=== PATIENT | female | born 1930 | race Caucasian/White ===

== ENCOUNTER 2016-06-05 15:20 | Emergency (ER) | payer OTHER, BC ==
[2016-06-05 15:25] VITALS: BP 127/57; PULSE 61; BMI 21.1
[2016-06-05] MEDS ORDERED: KETOROLAC TROMETHAMINE 60 MG/2 ML VIAL IVPUSH ONE (16:18)
--- NOTE | 2016-06-05 16:24 | PDOC ---
History of Present Illness <Handy John - Last Filed: 06/05/16 22:46> - General History Source: Patient, Family Exam Limitations: No Limitations - History of Present Illness Initial Comments: 06/05/16 16:21 Patient came to emergency department minutes on advice of Dr. Cartagena home they had called to discuss acute onset of pain. Patient states had episode of right flank pain that was spontaneously resolved within 2 hours approximately 3 weeks ago. Was not associated with any chills, fever, nausea vomiting, or any dysuria. Had a recurrence of that same type of pain in the right flank that was also spontaneously resolved within 2-3 hours. Patient assumed it was a musculoskeletal problem as it was not associated with any urinary problems or any other physical complaints. However last night had a recurrence of this pain but is been intermittent but recurrent and pain has escalated. States had history of kidney stone that was similar to the same type of pain 2006, that she passed spontaneously without intervention. Has had no recurrence and states that episode was noted to be left sided kidney stone. Denies any recent trauma, or exercise changes. Denies any fevers, URI symptoms, cough or shortness of breath. Denies any re-or constipation, no bowel changes. Family reports the patient suffers from osteoporosis but has never documented any spinal pathology or fractures 06/05/16 16:21 Occurred: reports: this morning Severity: reports: mild Pain Location: reports: back, chest Method of Injury: Yes: unknown Modifying Factors: improves with: None Loss of Consciousness: no loss of consciousness Associated Symptoms (Fall): denies symptoms <Klaudia Fernández - Last Filed: 06/06/16 12:50> - General Chief Complaint: Pain, Acute Stated Complaint: KIDNEY COMPLICATIONS (PCP SENT) Time Seen by Provider: 06/05/16 15:58 Past History <Handy John - Last Filed: 06/05/16 22:46> - Travel Traveled outside of the country in the last 30 days: No Close contact w/someone who was outside of country & ill: No - Past Medical History Anemia: No Asthma: No 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) Cardiac Disorders: Yes (AFIB) CVA: No COPD: No CHF: No Dementia: No Diabetes: Yes GI Disorders: No Disorders: No HTN: Yes Hypercholesterolemia: Yes Kidney Stones: Yes Liver Disease: No Seizures: No Thyroid Disease: No - Surgical History Abdominal Surgery: No Appendectomy: Yes Cardiac Surgery: No Cholecystectomy: No Lung Surgery: No Neurologic Surgery: No Orthopedic Surgery: Yes (ORIF JAZMIN FEMUR - TITANIUM RODS 20YRS AGO) - Psycho/Social/Smoking Cessation Hx Anxiety: No Suicidal Ideation: No Smoking Status: No Smoking History: Former smoker Have you smoked in the past 12 months: No Number of Cigarettes Smoked Daily: 0 Information on smoking cessation initiated: No Hx Alcohol Use: No Drug/Substance Use Hx: No Substance Use Type: None Hx Substance Use Treatment: No <Klaudia Fernández - Last Filed: 06/06/16 12:50> - Past Medical History Allergies/Adverse Reactions: Allergies Allergy/AdvReac Type Severity Reaction Status Date / Time ampicillin Allergy Verified 06/05/16 15:25 morphine Allergy Verified 06/05/16 15:25 Home Medications: Ambulatory Orders Atorvastatin Ca [Lipitor] 10 mg PO DAILY 08/20/12 Apixaban [Eliquis] 2.5 mg PO DAILY 12/14/15 Diltiazem Cd [Cardizem Cd -] 180 mg PO DAILY #30 cap.cd.24h 12/17/15 Sotalol HCl [Betapace -] 40 mg PO DAILY tablet 12/17/15 Ca/D3/Mag Ox/Zinc/Box Annealer/Kris/Bor [Calcium 600+D3 Plus Caplet] 1 each PO DAILY Cephalexin Monohydrate [Keflex -] 500 mg PO Q8H #21 capsule 06/05/16 Metformin HCl 500 mg PO DAILY 06/05/16 Tamsulosin HCl [Flomax] 0.4 mg PO DAILY #14 capsule 06/05/16 Tramadol HCl 50 mg PO Q8H PRN #12 tablet MDD 3 tabs 06/05/16 Trauma Specific PMHX - Complaint Specific PMHX Back Injury: No Neck Injury: No <Klaudia Fernández - Last Filed: 06/06/16 12:50> Review of Systems - Review of Systems Able to Perform ROS?: Yes Is the patient limited Korean proficient: Yes Constitutional: Yes: Symptoms Reported, See HPI, Malaise. No: Chills, Fever HEENTM: Yes: See HPI. No: Symptoms Reported Respiratory: Yes: Symptoms reported, See HPI. No: Cough, Shortness of Breath, Wheezing Musculoskeletal: Yes: Symptoms Reported Integumentary: No: Symptoms Reported All Other Systems: Reviewed and Negative <Klaudia Fernández - Last Filed: 06/06/16 12:50> *Physical Exam - Vital Signs Last Vital Signs Temp Pulse Resp BP Pulse Ox 61 18 127/57 97 06/05/16 15:21 06/05/16 15:21 06/05/16 15:21 06/05/16 15:21 <Handy John - Last Filed: 06/05/16 22:46> - Vital Signs Last Vital Signs Temp Pulse Resp BP Pulse Ox 61 18 127/57 97 06/05/16 15:21 06/05/16 15:21 06/05/16 15:21 06/05/16 15:21 - Physical Exam Comments: 06/05/16 16:25 General Appearance: Yes: Nourished, Appropriately Dressed, Apparent Distress, Mild Distress, Moderate Distress. No: Disheveled HEENT: positive: JAS, Normal ENT Inspection, TMs Normal, Pharynx Normal. negative: Rhinorrhea, Sinus Tenderness Neck: positive: Supple. negative: Tender, Lymphadenopathy (R), Lymphadenopathy (L) Respiratory/Chest: positive: Chest Tender, Lungs Clear, Normal Breath Sounds. negative: Respiratory Distress, Rales, Wheezing Cardiovascular: positive: Regular Rhythm, Regular Rate Gastrointestinal/Abdominal: positive: Normal Bowel Sounds, Flat (soft / but tnedderness to suprapubic and Rmid-Upper quadrants ), Soft, Guarding, Tenderness. negative: Tender, Organomegaly, Rebound Musculoskeletal: positive: Normal Inspection, Vertebral Tenderness (patient has exquisite reproduced tenderness along the lower thoracic spine and upper lumbar spine without crepitus or step-offs, no obvious deformity bruising or swelling noted. But pain this is also reproduced along bony prominence of posterior lower right ribs 11/30/11 without crepitus or step-offs) Extremity: positive: Normal Inspection, Normal Range of Motion. negative: Tender, Swelling, Calf Tenderness, Erythema Integumentary: positive: Dry, Warm, Pale Neurologic: positive: bread distributor II-XII NML intact, Fully Oriented, Alert, Normal Mood/ Affect, Normal Response, Motor Strength 5/5 <Pradeep,Klaudia - Last Filed: 06/06/16 12:50> ED Treatment Course - LABORATORY CBC & Chemistry Diagram: 06/05/16 17:04 06/05/16 16:15 - ADDITIONAL ORDERS Additional order review: Laboratory Results 06/05/16 06/05/16 19:10 16:15 Sodium 140 Potassium 4.4 Chloride 106 Carbon Dioxide 23 Anion Gap 11 BUN 35 H D Creatinine 1.4 H D Creat Clearance w eGFR 35.49 Random Glucose 154 H Calcium 9.7 Total Bilirubin 0.5 AST 20 D ALT 21 Alkaline Phosphatase 88 D Total Protein 7.3 Albumin 3.6 Urine Color Yellow Urine Appearance Clear Urine pH 5.0 Ur Specific [place] 1.024 Urine Protein 2+ H Urine Glucose (UA) 1+ H Urine Ketones Negative Urine Blood 1+ H Urine Nitrite Positive Urine Bilirubin Negative Urine Urobilinogen Negative Ur Leukocyte Esterase 2+ H Urine RBC 6 Urine WBC 16 Ur Epithelial Cells Rare Urine Bacteria Many Hyaline Casts 1 Urine Mucus Few 06/05/16 17:04 RBC 4.90 MCV 91.0 MCHC 33.2 RDW 15.1 D MPV 9.2 Neutrophils % 68.7 Lymphocytes % 16.6 Monocytes % 12.2 H Eosinophils % 1.4 Basophils % 1.1 - RADIOLOGY Radiology Studies Ordered: Category Date Time Status ABDOMEN & PELVIS CT W/O CONTR [CT] Stat CT Scan 06/05/16 20:16 Completed - Medications Given in the ED: ED Medications Discontinued Medications Generic Name Dose Route Start Last Admin Trade Name Freq PRN Reason Stop Dose Admin Ceftriaxone Sodium 1 gm/ 50 mls @ 100 mls/hr 06/05/16 20:32 06/05/16 20:55 Dextrose IVPB 06/05/16 21:01 100 mls/hr ONCE ONE Administration Sodium Chloride 500 mls @ 500 mls/hr 06/05/16 20:32 06/05/16 20:54 Normal Saline - IV 06/05/16 21:31 500 mls/hr ASDIR STA Administration Ketorolac Tromethamine 30 mg 06/05/16 16:18 06/05/16 17:11 Toradol Injection - IVPUSH 06/05/16 16:19 30 mg ONCE ONE Administration <Handy John D - Last Filed: 06/05/16 22:46> - LABORATORY CBC & Chemistry Diagram: 06/05/16 17:04 06/05/16 16:15 <ForrestonKlaudia - Last Filed: 06/06/16 12:50> Progress Note - Progress Note Progress Note: Back pain/flank pain. Will obtain x-rays to rule out compression fracture any pathologic fractures, basic labs and urinalysis to to evaluate for blood and possible renal stone, <Klaudia Fernández - Last Filed: 06/06/16 12:50> Medical Decision Making - Medical Decision Making 06/05/2016 at 1900 case turned over to haley John NP for remainder of evaluation and disposition. Family members updated to plan, and currently waiting for a spiral CT to evaluate renal status. Pain was well controlled with Toradol <Pradeep,Klaudia - Last Filed: 06/06/16 12:50> *DC/Admit/Observation/Transfer - Discharge Dispostion Admit: No <Handy John - Last Filed: 06/05/16 22:46> <Klaudia Fernández - Last Filed: 06/06/16 12:50> Diagnosis at time of Disposition: Renal colic UTI (urinary tract infection) Qualifiers: Urinary tract infection type: urethritis Qualified Code(s): N34.2 - Other urethritis - Discharge Dispostion Disposition: HOME Condition at time of disposition: Stable - Prescriptions Prescriptions: Tamsulosin HCl [Flomax] 0.4 mg PO DAILY #14 capsule Cephalexin Monohydrate [Keflex -] 500 mg PO Q8H #21 capsule Tramadol HCl 50 mg PO Q8H PRN #12 tablet MDD 3 tabs PRN Reason: Severe Pain - Referrals Referrals: Ja Cartagena MD [Primary Care Provider] - - Patient Instructions Printed Discharge Instructions: Kidney Stones -- Adult, DI for Urinary Tract Infection (UTI) Additional Instructions: FOLLOW UP WITH DR. CARTAGENA THIS WEEK FOR FURTHER EVALUATION. CALL TO SCHEDULE APPOINTMENT. TAKE MEDICATIONS PRESCRIBED. DO NOT DRIVE, DRINK ALCOHOL, OR OPERATE HEAVY MACHINERY. YOUR CAT SCAN READ: NON-OBSTRUCTING RIGHT RENAL UPPER POLE CALCULUS. FLOMAX IS TO HELP WITH PASSING OF THE STONE. RETURN IF YOU DEVELOP FEVER, NAUSEA, VOMITING, SEVERE BACK PAIN, OR ANY OTHER COMPLAINTS FOR FURTHER EVALUATION. Print Language: SAO TOMEAN
[2016-06-05] MEDS ORDERED: KETOROLAC TROMETHAMINE 30 MG/1 ML VIAL ONE (16:34)
[2016-06-05 17:17] LABS: BASOPHIL 1.1 % (0-2.0); EOSINOPHIL 1.4 % (0-4.5); MCH 30.2 pg (25.7-33.7); MCHC 33.2 g/dl (32.0-36.0); MEAN PLT VOLUME 9.2 fl (7.5-11.1); NEUTROPHILS 68.7 % (42.8-82.8); PLATELET COUNT 176 K/MM3 (134-434); RDW 15.1 % (11.6-15.6); WHITE BLOOD COUNT 7.2 K/mm3 (4.0-10.0)
[2016-06-05 17:54] LABS: ALBUMIN 3.6 g/dl (3.4-5.0); BILIRUBIN,TOTAL 0.5 mg/dL (0.2-1.0); CALCIUM 9.7 mg/dL (8.5-10.1); CREATININE 1.4 mg/dL (0.55-1.02)
[2016-06-05 17:55] LABS: TOT PROT 7.3 g/dl (6.4-8.2)
[2016-06-05 19:16] LABS: URINE APPEARANCE CLEAR; URINE BILIRUBIN NEGATIVE (NEGATIVE); URINE COLOR YELLOW; URINE GLUCOSE (UA) 1+ (NEGATIVE); URINE KETONE NEGATIVE (NEGATIVE); URINE NITRITE POSITIVE (NEGATIVE); URINE UROBILINOGEN NEGATIVE E.U./dl (0.2-1.0)
[2016-06-05 19:17] LABS: URINE BLOOD 1+ (NEGATIVE); URINE LEUK ESTERASE 2+ (NEGATIVE); URINE PROTEIN 2+ (NEGATIVE)
[2016-06-05 19:31] LABS: URINE BACTERIA MANY /hpf (NONE SEEN); URINE HYALINE CAST 1 /lpf; URINE MUCUS FEW; URINE RBC 6 /hpf (0-3); URINE WBC 16 /hpf (3-5)
[2016-06-05] MEDS ORDERED: CEFTRIAXONE 1 GM in DEXTROSE 5%-WATER - 50 ML IVPB ONE (20:32)
[2016-06-05] MEDS ORDERED: SODIUM CHLORIDE 500 ML IV STA (20:32)
[2016-06-05] MEDS ORDERED: CEFTRIAXONE 50 ML ONE (20:48)
[2016-06-05] MEDS ORDERED: TAMSULOSIN HCL 0.4 MG CAP.ER.24H (FP) PO ONE (22:46)
--- NOTE | 2016-06-06 12:50 | EKG ---
Test Reason : Blood Pressure : / mmHG Vent. Rate : 089 BPM Atrial Rate : 441 BPM P-R Int : 000 ms QRS Dur : 082 ms QT Int : 342 ms P-R-T Axes : 000 001 015 degrees QTc Int : 416 ms ATRIAL FIBRILLATION ABNORMAL ECG WHEN COMPARED WITH ECG OF 16-APR-2014 12:16, ATRIAL FIBRILLATION HAS REPLACED SINUS RHYTHM VENT. RATE HAS INCREASED BY 38 BPM NON-SPECIFIC CHANGE IN ST SEGMENT IN ANTERIOR LEADS NONSPECIFIC T WAVE ABNORMALITY NOW EVIDENT IN ANTERIOR LEADS CLINICAL CORRELATION IS RECOMMENDED Confirmed by EDMUNDO CRAMER, LISSETTE ([id number]) on 06/06/2016 12:50:43 PM Referred By: Confirmed By:LISSETTE WYATT MD
== END 2016-06-05 23:32 | disposition home or self-care (01) ==
LOC: JER 15:20
PROC: 3E03329 Introduction of Other Anti-infective into Peripheral Vein, Percutaneous Approach (ICD-10-PCS; principal; 2016-06-05)
PROC: 3E0333Z Introduction of Anti-inflammatory into Peripheral Vein, Percutaneous Approach (ICD-10-PCS; 2016-06-05)
DX: N23 Unspecified renal colic (principal); N34.2 Other urethritis; I10 Essential (primary) hypertension; E11.9 Type 2 diabetes mellitus without complications; E78.00 Pure hypercholesterolemia, unspecified
CPT/HCPCS: 36415; 71020-TC; 72070-TC; 72100-TC; 74176-TC; 76775-TC; 80053; 81003; 81015; 85025; 93005; 93010; 99282-25

== ENCOUNTER 2017-04-06 19:11 | Inpatient (IN) | payer OTHER, BC ==
--- NOTE | 2017-04-06 19:27 | PDOC ---
History of Present Illness - General History Source: Patient, Family Exam Limitations: No Limitations - History of Present Illness Initial Comments: 04/06/17 21:47 "The patient is a 87 year old female brought via EMS and presenting with her family, with a significant past medical history of AFIB (eliquis), HLD, HTN, diabetes who presents to the emergency department with increasing left sided neck pain with spasms after a fall 1 or 2 days ago. The patient was found on the ground by her who does not remember if she was confused or not. Pt does not remember the circumstances of the fall, nor does she recall hitting her head or having LOC. She does not recall if she had any prodromal sxs. The family notes that since the fall the patient has been acting normally and walking on baseline. Pt's family called their neighbor who is a physician today who recommended she go to the ED for evaluaiton. She describes her neck pain as 7/10 in severity. The patient denies chest pain, shortness of breath, headache and dizziness. Denies fever, chills, nausea, vomit, diarrhea and constipation. Denies dysuria, frequency, urgency and hematuria. 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) Cardiac Disorders: Yes (AFIB) CVA: No COPD: No CHF: No Dementia: No Diabetes: Yes GI Disorders: No Disorders: No HTN: Yes Hypercholesterolemia: Yes Kidney Stones: Yes Liver Disease: No Seizures: No Thyroid Disease: No - Surgical History Abdominal Surgery: No Appendectomy: Yes Cardiac Surgery: No Cholecystectomy: No Lung Surgery: No Neurologic Surgery: No Orthopedic Surgery: Yes (ORIF JAZMIN FEMUR - TITANIUM RODS 20YRS AGO) - Suicide/Smoking/Psychosocial Hx Smoking Status: No Smoking History: Former smoker Have you smoked in the past 12 months: No Number of Cigarettes Smoked Daily: 0 Hx Alcohol Use: No Drug/Substance Use Hx: No Substance Use Type: None Hx Substance Use Treatment: No <Elizabeth Steelea - Last Filed: 04/07/17 02:47> - Past Medical History Allergies/Adverse Reactions: Allergies Allergy/AdvReac Type Severity Reaction Status Date / Time ampicillin Allergy Verified 04/06/17 19:37 morphine Allergy Verified 04/06/17 19:37 Home Medications: Ambulatory Orders Atorvastatin Ca [Lipitor] 10 mg PO DAILY 08/20/12 Apixaban [Eliquis] 2.5 mg PO DAILY 12/14/15 Diltiazem Cd [Cardizem Cd -] 180 mg PO DAILY #30 cap.cd.24h 12/17/15 Sotalol HCl [Betapace -] 40 mg PO DAILY tablet 12/17/15 Ca/D3/Mag Ox/Zinc/Line Crewman/Kris/Bor [Calcium 600+D3 Plus Caplet] 1 each PO DAILY Cephalexin Monohydrate [Keflex -] 500 mg PO Q8H #21 capsule 06/05/16 Metformin HCl 500 mg PO DAILY 06/05/16 Tamsulosin HCl [Flomax] 0.4 mg PO DAILY #14 capsule 06/05/16 Tramadol HCl 50 mg PO Q8H PRN #12 tablet MDD 3 tabs 06/05/16 Review of Systems - Review of Systems Able to Perform ROS?: Yes Comments:: 04/06/17 21:47 "GENERAL/CONSTITUTIONAL: No fever or chills. No weakness. HEAD, EYES, EARS, NOSE AND THROAT: No change in vision. No ear pain or discharge. No sore throat. GASTROINTESTINAL: No nausea, vomiting, diarrhea or constipation. GENITOURINARY: No dysuria, frequency, or change in urination. CARDIOVASCULAR: No chest pain or shortness of breath. RESPIRATORY: No cough, wheezing, or hemoptysis. MUSCULOSKELETAL: (+) Left sided neck pain. No joint or muscle swelling or pain. No pain. SKIN: No rash NEUROLOGIC: No headache, vertigo, loss of consciousness, or change in strength/ sensation. ENDOCRINE: No increased thirst. No abnormal weight change. HEMATOLOGIC/LYMPHATIC: No anemia, easy bleeding, or history of blood clots. ALLERGIC/IMMUNOLOGIC: No hives or skin allergy." <Lobo Guo - Last Filed: 04/06/17 23:11> *Physical Exam - Vital Signs Last Vital Signs Temp Pulse Resp BP Pulse Ox 130 H 14 173/114 97 04/06/17 19:37 04/06/17 19:37 04/06/17 19:37 04/06/17 19:37 - Physical Exam Comments: 04/06/17 21:48 "GENERAL: Awake, alert, in no acute distress HEAD: No signs of trauma EYES: PERRLA, EOMI, sclera anicteric, conjunctiva clear ENT: Auricles normal inspection, hearing grossly normal, nares patent, oropharynx clear without exudates. Moist mucosa NECK: (+) Reproducible cervical paraspinal L sided pain with flexion/extension of neck. Tenderness to palpation of the left side of neck. LUNGS: Breath sounds equal, clear to auscultation bilaterally. No wheezes, +L sided rhonchi at the base HEART: irregularly irregular, rate btwn 120-150 , no murmurs, rubs or gallops ABDOMEN: Soft, nontender, normoactive bowel sounds. No guarding, no rebound. No masses EXTREMITIES: Normal range of motion, no edema. No clubbing or cyanosis. No cords, erythema, or tenderness BACK: No midline spinal tenderness in cervical/thoracic/lumbar region NEUROLOGICAL: Normal speech, cranial nerves intact, negative pronator drift, 5/ 5 strength in all 4 extremities, normal sensation to light touch in all 4 extremities, normal cerebellar exam, normal gait, normal reflexes and tone SKIN: Warm, Dry, normal turgor, no rashes or lesions noted. " <Lobo Guo - Last Filed: 04/06/17 23:11> Heart Score/ECG Review #1 04/07/17 02:46 Twelve-lead EKG was performed and reviewed by me. Atrial fibrillation with rapid ventricular response, rate 120. Normal axis, no ST elevations or T-wave inversions. <Dm Steele - Last Filed: 04/07/17 02:47> ED Treatment Course - LABORATORY CBC & Chemistry Diagram: 04/06/17 21:15 04/06/17 21:15 - ADDITIONAL ORDERS Additional order review: Laboratory Results 04/06/17 21:15 Urine Color Straw Urine Appearance Clear Urine pH 7.0 D Ur Specific [place] 1.009 Urine Protein 2+ H Urine Glucose (UA) Negative Urine Ketones Negative Urine Blood Negative Urine Nitrite Negative Urine Bilirubin Negative Urine Urobilinogen Negative Ur Leukocyte Esterase Negative Urine WBC (Auto) 1 Urine RBC (Auto) 1 Ur Epithelial Cells Rare Urine Bacteria Rare Hyaline Casts 1 Urine Mucus Rare 04/06/17 21:15 RBC 4.72 MCV 93.7 MCHC 32.8 RDW 13.7 MPV 9.2 Neutrophils % 62.4 Lymphocytes % 22.3 D Monocytes % 10.9 H Eosinophils % 3.3 D Basophils % 1.1 <Lobo Guo - Last Filed: 04/06/17 23:11> - LABORATORY CBC & Chemistry Diagram: 04/06/17 21:15 04/06/17 21:15 <Dm Steele - Last Filed: 04/07/17 02:47> Medical Decision Making - Medical Decision Making 04/06/17 23:11 Dr. Carballo was called at [phone] at 11pm. The answering service notes that the doctor is not welder production line combination. Dr. Griffin was called at [phone] at 11:05pm. The answering service notes that the doctor is not welder production line combination either Dr. Jaron Hargrove was called at [phone] at 11:11pm and a message to call back was left. <Lobo Guo - Last Filed: 04/06/17 23:11> - Medical Decision Making 04/06/17 20:38 87-year-old female with multiple medical problems including A. fib on anticoagulation presents to the emergency department with an unwitnessed fall yesterday and neck pain. Hard collar placed. Vitals are remarkable for tachycardia to 130 on arrival with hypertension. On exam, the patient is irregularly irregular and has rales on the left side of her lungs. Pt is neurovasc intact with no numbness or weakness of UE's. It is unclear if she had a syncopal episode or mechanical fall yesterday as the patient and her are both poor historians. Will give the patient diltiazem for rate control, obtain labs, UA, do trauma workup and likely admit given possible syncope. 04/06/17 23:54 Labs with BNP elevated to 2500, CXR with some congestion, HR came down to 90s- 100 range and thus diltiazem was held. CTH negative for acute pathology CT-c spine with nondisplaced C1 ant arch fracture. Case discussed with Dr. Hargrove ( [facility] [place]) who recommends hard collar for 10-12 weeks. Since fracture is only in 1 location on C1 arch and non displaced, this is not an unstable fracture. Pt remains neurovascularly intact with no UE weakness/numbness. C-collar in place. CXR and pelvis XR pending Case discussed with Dr. Puente (covering for PMD Dr. Durán), pt accepted for admission to in tele Case discussed in detail with admitting physician including history, physical exam and ancillary studies. Admitting physician has assumed care for the patient, will follow all pending diagnostics and will complete the evaluation and treatment. <Dm Steele - Last Filed: 04/07/17 02:47> *DC/Admit/Observation/Transfer - Attestations Scribe Attestion: 04/06/17 21:48 Documentation prepared by Lobo Guo, acting as certified medical asst for Dm Steele MD <Lobo Guo - Last Filed: 04/06/17 23:11> - Discharge Dispostion Admit: Yes - Attestations Physician Attestion: 04/07/17 00:05 I, Dr. Dm Steele MD, attest that this document has been prepared under my direction and personally reviewed by me in its entirety. I further attest, that it accurately reflects all work, treatment, procedures and medical decision -making performed by me. <Dm Steele - Last Filed: 04/07/17 02:47> Diagnosis at time of Disposition: Head trauma, Atrial fibrillation, Cervical spine fracture - Discharge Dispostion Condition at time of disposition: Stable
[2017-04-06 19:40] VITALS: BMI 20.9
[2017-04-06] MEDS ORDERED: dilTIAZem HCL 50 MG/10 ML - 10 ML VIAL IVPUSH ONE (20:34)
[2017-04-06 21:30] LABS: BASO % 1.1 % (0-2.0); EOS % 3.3 % (0-4.5); HEMATOCRIT 44.2 % (32.4-45.2); HEMOGLOBIN 14.5 GM/dL (10.7-15.3); LYMPH % 22.3 % (8-40); MCH 30.7 pg (25.7-33.7); MCHC 32.8 g/dl (32.0-36.0); MEAN CELL VOLUME 93.7 fl (80-96); MEAN PLT VOLUME 9.2 fl (7.5-11.1); MONO % 10.9 % (3.8-10.2); NEUT % 62.4 % (42.8-82.8); PLATELET COUNT 196 K/MM3 (134-434); RBC 4.72 M/mm3 (3.60-5.2); RDW 13.7 % (11.6-15.6); URINE APPEARANCE CLEAR; URINE BILIRUBIN NEGATIVE (NEGATIVE); URINE BLOOD NEGATIVE (NEGATIVE); URINE COLOR STRAW; URINE GLUCOSE (UA) NEGATIVE (NEGATIVE); URINE KETONE NEGATIVE (NEGATIVE); URINE LEUK ESTERASE NEGATIVE (NEGATIVE); URINE NITRITE NEGATIVE (NEGATIVE); URINE UROBILINOGEN NEGATIVE mg/dL (0.2-1.0); WHITE BLOOD COUNT 6.1 K/mm3 (4.0-10.0)
[2017-04-06 21:31] LABS: URINE PROTEIN 2+ (NEGATIVE)
[2017-04-06 21:32] LABS: EPI CELLS RARE /HPF (FEW); URINE BACTERIA RARE /hpf (NONE SEEN); URINE HYALINE CAST 1 /lpf; URINE MUCUS RARE
[2017-04-06 21:51] LABS: INR 1.05 (0.82-1.09); PROTHROMBIN TIME (PATIENT) 11.9 SEC (9.98-11.88)
[2017-04-06 21:52] LABS: ALBUMIN 3.5 g/dl (3.4-5.0); ANION GAP 7 (8-16); BILIRUBIN,TOTAL 0.6 mg/dL (0.2-1.0); BLOOD UREA NITROGEN 18 mg/dL (7-18); CHLORIDE 105 mmol/L (98-107); CO2 27 mmol/L (21-32); GLUCOSE,RANDOM 100 mg/dL (74-106); MAGNESIUM 1.8 mg/dL (1.8-2.4); POTASSIUM 4.6 mmol/L (3.5-5.1); SGOT/AST 23 U/L (15-37); SODIUM 139 mmol/L (136-145); TOT PROT 7.4 g/dl (6.4-8.2)
[2017-04-06 21:59] LABS: ALK PHOS 103 U/L (45-117); SGPT/ALT 21 U/L (12-78)
[2017-04-06] MEDS ORDERED: ACETAMINOPHEN 1000 MG/100 ML VIAL (NON FORMULARY) IVPB ONE (23:44)
[2017-04-07] MEDS ORDERED: traMADol HCL 50 MG TABLET PO PRN (00:22)
[2017-04-07] MEDS ORDERED: ACETAMINOPHEN INJECTION 100 ML IVPB ONE (00:24)
[2017-04-07] MEDS ORDERED: ACETAMINOPHEN 325 MG TABLET (FP) PO PRN (00:25)
[2017-04-07] MEDS ORDERED: FUROSEMIDE 40 MG/4 ML INJECTABLE VIAL IVPUSH ONE (00:28)
[2017-04-07] MEDS ORDERED: CEPHALEXIN MONOHYDRATE 500 MG CAPSULE (UD) PO SCH (00:30)
[2017-04-07] MEDS ORDERED: FUROSEMIDE 40 MG/4 ML INJECTABLE VIAL ONE (01:03)
[2017-04-07] MEDS ORDERED: TAMSULOSIN HCL 0.4 MG CAP.ER.24H (FP) PO SCH (10:00)
[2017-04-07] MEDS ORDERED: APIXABAN 2.5 MG TABLET PO SCH (10:00)
[2017-04-07] MEDS: ATORVASTATIN CA 10 MG TABLET (FP) PO SCH (10:55)
[2017-04-07] MEDS: CALCIUM 500MG/VIT-D 200 UNITS COMBO TABLET (FP) PO SCH (10:55)
[2017-04-07] MEDS: SOTALOL HCL 80 MG TABLET (FP) PO SCH (10:55)
--- NOTE | 2017-04-07 11:30 | HP ---
Admitting History and Physical - Primary Care Physician PCP: Ja Cartagena - Admission Chief Complaint: Neck pain History of Present Illness: 87 yrs old f very independent H/O HTN, Afib on AC rate controlled, dyslipedemia present after sustaining a mechanical fall , patient was coming out of toilet tripped and fall down developed neck stiffness mainly on left side that aggravates with passive movement, no LOC, no syncope or presyncope symptoms, denies any tingling numbness or motor weakness in UE came to Ed , for evaluation , patient was in Afiub with RVR responded to pain meds and Diltizem IV Push , laso elevated BNP recived IV lazsix, Ct C spine shows left sided C1 ant Neural arch fracture fracture , neurosurgery consulted, initially AC stopped but resumed after consulting with Neurosurgery - Past Medical History Cardiovascular: Yes: AFIB, HTN, Hyperlipdemia Endocrine: Yes: Other (glucose intolerance) - Past Surgical History Past Surgical History: Yes: Joint Replacement - Smoking History Smoking history: Former smoker Have you smoked in the past 12 months: No Aproximately how many cigarettes per day: 0 - Alcohol/Substance Use Hx Alcohol Use: No History of Substance Use: reports: None - Social History ADL: Independent History of Recent Travel: No Home Medications - Allergies Allergies/Adverse Reactions: Allergies Allergy/AdvReac Type Severity Reaction Status Date / Time tomato Allergy Unknown Rash Verified 04/09/17 13:19 ampicillin Allergy Verified 04/06/17 19:37 morphine Allergy Verified 04/06/17 19:37 - Home Medications Home Medications: Ambulatory Orders Atorvastatin Ca [Lipitor] 10 mg PO DAILY 08/20/12 Diltiazem Cd [Cardizem Cd -] 180 mg PO DAILY #30 cap.cd.24h 12/17/15 Sotalol HCl [Betapace -] 40 mg PO DAILY tablet 12/17/15 Ca/D3/Mag Ox/Zinc/Outside Barrel Lathe Operator/Kris/Bor [Calcium 600-D3 Plus Caplet] 1 each PO DAILY Metformin HCl 500 mg PO DAILY 06/05/16 Tramadol HCl 50 mg PO Q8H PRN #12 tablet MDD 3 tabs 06/05/16 Apixaban [Eliquis -] 2.5 mg PO BID #60 tablet 04/10/17 Family Disease History - Family Disease History Family History: Unremarkable Physical Examination Vital Signs: Vital Signs Temperature Pulse Rate 70 04/07/17 08:55 Respiratory Rate 17 04/07/17 08:55 Blood Pressure 154/89 04/07/17 08:55 O2 Sat by Pulse Oximetry (%) 98 04/07/17 08:55 Elderly F comfortable c/o Neck Pian HEENT: Mm moist, no anemia, PERRLA EOMI NECK Stablized in Hard collar CHEST: CTA B/L CVS:S1S2 R no m/g/r ABD: No distention, non tender Bs + EXT: No edema feet, no calf tender, Pulses + CONCRETE SWIMMING POOL INSTALLER: AOX3 non focal Labs: CBC, BMP 04/06/17 21:15 04/06/17 21:15 Imaging - Results Chest X-ray: Report Reviewed (No acute Changes) Cat Scan: Report Reviewed (Head; no acute changes C spine: transverse fracture Left anyt neural arch) EKG: Report Reviewed (Afib with RVR Afib with rate controlled) Problem List - Problems (1) Fall Assessment/Plan: Mechanical fall will evalute with PT Code(s): W19.XXXA - UNSPECIFIED FALL, INITIAL ENCOUNTER (2) Cervical spine fracture Assessment/Plan: C21 fractiure no neurological deficit pain control, hard color , neuro spine consult Code(s): S12.9XXA - FRACTURE OF NECK, UNSPECIFIED, INITIAL ENCOUNTER Qualifiers: Encounter type: initial encounter Cervical vertebra fracture level: C1 (3) ADELITA (acute kidney injury) Assessment/Plan: Rising BUN Creat will start IV Hydration F/U BMP in am (4) HTN (hypertension) Assessment/Plan: Well controlled cont home meds Code(s): I10 - ESSENTIAL (PRIMARY) HYPERTENSION (5) Atrial fibrillation with RVR Assessment/Plan: Present with Afib with RVR now rate controlled Code(s): I48.91 - UNSPECIFIED ATRIAL FIBRILLATION Assessment/Plan Active Medications Generic Name Dose Route Start Last Admin Trade Name Freq PRN Reason Stop Dose Admin Acetaminophen 650 mg 04/07/17 00:25 Tylenol - PO Q6H PRN PAIN Apixaban 2.5 mg 04/07/17 10:00 04/07/17 10:55 Eliquis - PO 2.5 mg BID LETICIA Administration Atorvastatin Calcium 10 mg 04/07/17 10:00 04/07/17 10:55 Lipitor - PO 10 mg DAILY LETICIA Administration Calcium Carbonate/Cholecalciferol 1 tab 04/07/17 10:00 04/07/17 10:55 Os-Obinna 500+D - PO 1 tab DAILY LETICIA Administration Diltiazem HCl 180 mg 04/07/17 10:00 04/07/17 10:55 Cardizem Cd - PO 180 mg DAILY LETICIA Administration Sotalol HCl 40 mg 04/07/17 10:00 04/07/17 10:55 Betapace - PO 40 mg DAILY LETICIA Administration Tramadol HCl 50 mg 04/07/17 00:22 Ultram - PO Q8H PRN SEVERE PAIN
--- NOTE | 2017-04-07 12:14 | EKG ---
Test Reason : Blood Pressure : / mmHG Vent. Rate : 120 BPM Atrial Rate : 394 BPM P-R Int : 000 ms QRS Dur : 084 ms QT Int : 302 ms P-R-T Axes : 000 023 006 degrees QTc Int : 426 ms ATRIAL FIBRILLATION WITH RAPID VENTRICULAR RESPONSE NONSPECIFIC ST ABNORMALITY ABNORMAL ECG WHEN COMPARED WITH ECG OF 05-JUN-2016 16:42, NONSPECIFIC T WAVE ABNORMALITY NO LONGER EVIDENT IN ANTERIOR LEADS Confirmed by FERMIN CRAMER, SILVANA ([id number]) on 04/07/2017 12:13:40 PM Referred By: Confirmed By:SILVANA CHRISTENSEN MD
[2017-04-07] MEDS: APIXABAN 2.5 MG TABLET PO SCH (21:45)
[2017-04-08 07:29] LABS: BASO % 0.8 % (0-2.0); EOS % 2.5 % (0-4.5); HEMATOCRIT 44.6 % (32.4-45.2); HEMOGLOBIN 14.8 GM/dL (10.7-15.3); LYMPH % 17.5 % (8-40); MCH 30.9 pg (25.7-33.7); MCHC 33.3 g/dl (32.0-36.0); MEAN CELL VOLUME 92.9 fl (80-96); MEAN PLT VOLUME 9.2 fl (7.5-11.1); MONO % 11.5 % (3.8-10.2); NEUT % 67.7 % (42.8-82.8); PLATELET COUNT 215 K/MM3 (134-434); RDW 13.5 % (11.6-15.6); WHITE BLOOD COUNT 7.5 K/mm3 (4.0-10.0)
[2017-04-08 08:11] LABS: ANION GAP 8 (8-16); BLOOD UREA NITROGEN 29 mg/dL (7-18); CALCIUM 8.8 mg/dL (8.5-10.1); CHLORIDE 103 mmol/L (98-107); CO2 26 mmol/L (21-32); CREATININE 1.2 mg/dL (0.55-1.02); GLUCOSE,RANDOM 129 mg/dL (74-106); POTASSIUM 4.1 mmol/L (3.5-5.1); SODIUM 137 mmol/L (136-145)
[2017-04-08] MEDS: ATORVASTATIN CA 10 MG TABLET (FP) PO SCH (09:04)
[2017-04-08] MEDS: APIXABAN 2.5 MG TABLET PO SCH ×2 (09:04→22:45)
[2017-04-08] MEDS: SOTALOL HCL 80 MG TABLET (FP) PO SCH (09:05)
[2017-04-08] MEDS: CALCIUM 500MG/VIT-D 200 UNITS COMBO TABLET (FP) PO SCH (09:05)
--- NOTE | 2017-04-08 10:36 | CON.CARD ---
Cardiology Consult (text) - Consultation Consultation Note: cc: s/p fall hpi: 87 f hx htn, hld, dm, afib here s/p fall. Pt reports having mechanical fall few days ago when trying to get out of her wheelchair. No prodrome sxs, no loc. No cp, sob, palps, dizzy, loc, pnd, orthopnea, le edema. Had been having neck pain after fall and in er found to have c-spine fx. pmh: per hpi psh: nc social: no tob fam: no premature cad, scd ros: per hpi; no fever, nvd, cough, nasal congestion, GRIMM, vision changes, wt loss, gib meds: Home Medications Medication Instructions Recorded Atorvastatin Ca [Lipitor] 10 mg PO DAILY 08/20/12 Apixaban [Eliquis] 2.5 mg PO DAILY 12/14/15 Diltiazem Cd [Cardizem Cd -] 180 mg PO DAILY #30 cap.cd.24h 12/17/15 Sotalol HCl [Betapace -] 40 mg PO DAILY tablet 12/17/15 Ca/D3/Mag Ox/Zinc/Herbarium Curator/Kris/Bor 1 each PO DAILY 06/05/16 [Calcium 600+D3 Plus Caplet] Cephalexin Monohydrate [Keflex -] 500 mg PO Q8H #21 capsule 06/05/16 Metformin HCl 500 mg PO DAILY 06/05/16 Tamsulosin HCl [Flomax] 0.4 mg PO DAILY #14 capsule 06/05/16 Tramadol HCl 50 mg PO Q8H PRN #12 tablet MDD 3 06/05/16 tabs pe: Vital Signs Period Temp Pulse Resp BP Sys/Grant Pulse Ox Last 24 Hr 97.4 F-98.4 F 73-98 16-20 110-155/61-93 95-98 nad, no jvd irreg,rr, s1s2 no mrg ctabl nl eff aaox3 no le e/c/c abd nt nd pos bs pos dp pt, no carotid bruits no jaundice diaphoresis Laboratory Last Values WBC 7.5 K/mm3 (4.0-10.0) 04/08/17 06:37 RBC 4.80 M/mm3 (3.60-5.2) 04/08/17 06:37 Hgb 14.8 GM/dL (10.7-15.3) 04/08/17 06:37 Hct 44.6 % (32.4-45.2) 04/08/17 06:37 MCV 92.9 fl (80-96) 04/08/17 06:37 MCH 30.9 pg (25.7-33.7) 04/08/17 06:37 MCHC 33.3 g/dl (32.0-36.0) 04/08/17 06:37 RDW 13.5 % (11.6-15.6) 04/08/17 06:37 Plt Count 215 K/MM3 (134-434) 04/08/17 06:37 MPV 9.2 fl (7.5-11.1) 04/08/17 06:37 Neutrophils % 67.7 % (42.8-82.8) 04/08/17 06:37 Lymphocytes % 17.5 % (8-40) D 04/08/17 06:37 Monocytes % 11.5 % (3.8-10.2) H 04/08/17 06:37 Eosinophils % 2.5 % (0-4.5) 04/08/17 06:37 Basophils % 0.8 % (0-2.0) 04/08/17 06:37 PT with INR 11.90 SEC (9.98-11.88) H 04/06/17 21:15 INR 1.05 (0.82-1.09) 04/06/17 21:15 PTT (Actin FS) 26.6 SECONDS (26.9-34.4) L D 04/06/17 21:15 Sodium 137 mmol/L (136-145) 04/08/17 06:37 Potassium 4.1 mmol/L (3.5-5.1) 04/08/17 06:37 Chloride 103 mmol/L (98-107) 04/08/17 06:37 Carbon Dioxide 26 mmol/L (21-32) 04/08/17 06:37 Anion Gap 8 (8-16) 04/08/17 06:37 BUN 29 mg/dL (7-18) H 04/08/17 06:37 Creatinine 1.2 mg/dL (0.55-1.02) H 04/08/17 06:37 Creat Clearance w eGFR 52.20 (>60) 04/06/17 21:15 Random Glucose 129 mg/dL (74-106) H 04/08/17 06:37 Calcium 8.8 mg/dL (8.5-10.1) 04/08/17 06:37 Magnesium 1.8 mg/dL (1.8-2.4) 04/06/17 21:15 Total Bilirubin 0.6 mg/dL (0.2-1.0) 04/06/17 21:15 AST 23 U/L (15-37) 04/06/17 21:15 ALT 21 U/L (12-78) 04/06/17 21:15 Alkaline Phosphatase 103 U/L (45-117) 04/06/17 21:15 Troponin I < 0.02 ng/ml (0.00-0.05) 04/06/17 21:15 B-Natriuretic Peptide 2552.51 pg/ml (5-450) H 04/06/17 21:15 Total Protein 7.4 g/dl (6.4-8.2) 04/06/17 21:15 Albumin 3.5 g/dl (3.4-5.0) 04/06/17 21:15 TSH 2.02 uIU/ml (0.358-3.74) 04/08/17 06:37 Urine Color Straw 04/06/17 21:15 Urine Appearance Clear 04/06/17 21:15 Urine pH 7.0 (5.0-8.0) D 04/06/17 21:15 Ur Specific [place] 1.009 (1.001-1.035) 04/06/17 21:15 Urine Protein 2+ (NEGATIVE) H 04/06/17 21:15 Urine Glucose (UA) Negative (NEGATIVE) 04/06/17 21:15 Urine Ketones Negative (NEGATIVE) 04/06/17 21:15 Urine Blood Negative (NEGATIVE) 04/06/17 21:15 Urine Nitrite Negative (NEGATIVE) 04/06/17 21:15 Urine Bilirubin Negative (NEGATIVE) 04/06/17 21:15 Urine Urobilinogen Negative mg/dL (0.2-1.0) 04/06/17 21:15 Ur Leukocyte Esterase Negative (NEGATIVE) 04/06/17 21:15 Urine WBC (Auto) 1 /hpf (3-5) 04/06/17 21:15 Urine RBC (Auto) 1 /hpf (0-3) 04/06/17 21:15 Ur Epithelial Cells Rare /HPF (FEW) 04/06/17 21:15 Urine Bacteria Rare /hpf (NONE SEEN) 04/06/17 21:15 Hyaline Casts 1 /lpf 04/06/17 21:15 Urine Mucus Rare 04/06/17 21:15 Blood Type AB POSITIVE 04/06/17 21:15 Antibody Screen Negative 04/06/17 21:15 cxr: clear lungs ecg: afib, hr 120, nl qtc, no ischemic changes echo 08/2013: nl lv/rv, mild mr echo 11/2015: nl lv, rv tds, mod manuel, mod-sev mr, mod tr, rvsp 30-40 tele: rate controlled afib a/p: 87 f hx htn, hld, dm, afib here s/p fall. fall: -seems to be mechanical fall, no indication of cardiac etiology -has c-spine fx, plans per neuro surgery htn: -controlled hld: -cont statin afib/flutter with rvr: -rvr difficult to control in past on several meds, currently rate ok with sotalol and dilt, continue -cont AC as doing
--- NOTE | 2017-04-08 11:42 | PN ---
Progress Note, Physician Chief Complaint: Less neck pain able to ambulate on wheel chair remained rate controlled - Current Medication List Current Medications: Active Medications Acetaminophen (Tylenol -) 650 mg PO Q6H PRN PRN Reason: PAIN Last Admin: 04/08/17 08:04 Dose: 650 mg Apixaban (Eliquis -) 2.5 mg PO BID [facility] Last Admin: 04/08/17 09:04 Dose: 2.5 mg Atorvastatin Calcium (Lipitor -) 10 mg PO DAILY [facility] Last Admin: 04/08/17 09:04 Dose: 10 mg Calcium Carbonate/Cholecalciferol (Os-Obinna 500+D -) 1 tab PO DAILY [facility] Last Admin: 04/08/17 09:05 Dose: 1 tab Diltiazem HCl (Cardizem Cd -) 180 mg PO DAILY [facility] Last Admin: 04/08/17 09:04 Dose: 180 mg Sotalol HCl (Betapace -) 40 mg PO DAILY [facility] Last Admin: 04/08/17 09:05 Dose: 40 mg Tramadol HCl (Ultram -) 50 mg PO Q8H PRN PRN Reason: SEVERE PAIN - Objective Vital Signs: Vital Signs Temperature 98 F 04/08/17 10:00 Pulse Rate 84 04/08/17 10:00 Respiratory Rate 18 04/08/17 10:00 Blood Pressure 150/88 04/08/17 10:00 O2 Sat by Pulse Oximetry (%) 96 04/08/17 09:00 Elderly F comfortable c/o Neck Pian HEENT: Mm moist, no anemia, PERRLA EOMI NECK Stablized in Hard collar CHEST: CTA B/L CVS:S1S2 R no m/g/r ABD: No distention, non tender Bs + EXT: No edema feet, no calf tender, Pulses + TITLE CLERK: AOX3 non focal Labs: CBC, BMP 04/08/17 06:37 04/08/17 06:37 INR, PTT INR 1.05 (0.82-1.09) 04/06/17 21:15 Problem List - Problems (1) Fall Assessment/Plan: Mechanical fall will evalute with PT Code(s): W19.XXXA - UNSPECIFIED FALL, INITIAL ENCOUNTER (2) Cervical spine fracture Assessment/Plan: C21 fracture no neurological deficit pain control, hard color , neuro spine consulted recommended pain control OK to start AC and Cont collar for 10 to 12 wks Code(s): S12.9XXA - FRACTURE OF NECK, UNSPECIFIED, INITIAL ENCOUNTER Qualifiers: Encounter type: initial encounter Cervical vertebra fracture level: C1 (3) ADELITA (acute kidney injury) Assessment/Plan: Rising BUN Creat will start IV Hydration F/U BMP in am Code(s): N17.9 - ACUTE KIDNEY FAILURE, UNSPECIFIED (4) HTN (hypertension) Assessment/Plan: Well controlled cont home meds Code(s): I10 - ESSENTIAL (PRIMARY) HYPERTENSION (5) Atrial fibrillation with RVR Assessment/Plan: Present with Afib with RVR now rate controlled Code(s): I48.91 - UNSPECIFIED ATRIAL FIBRILLATION
[2017-04-08] MEDS: SODIUM CHLORIDE 1,000 ML IV SCH (12:41)
[2017-04-09 07:11] LABS: BASO % 1.3 % (0-2.0); EOS % 3.3 % (0-4.5); HEMATOCRIT 40.9 % (32.4-45.2); HEMOGLOBIN 13.7 GM/dL (10.7-15.3); LYMPH % 23.8 % (8-40); MCH 31.4 pg (25.7-33.7); MCHC 33.6 g/dl (32.0-36.0); MEAN CELL VOLUME 93.4 fl (80-96); MEAN PLT VOLUME 9.3 fl (7.5-11.1); MONO % 13.7 % (3.8-10.2); NEUT % 57.9 % (42.8-82.8); PLATELET COUNT 207 K/MM3 (134-434); RBC 4.38 M/mm3 (3.60-5.2); RDW 13.7 % (11.6-15.6); WHITE BLOOD COUNT 6.4 K/mm3 (4.0-10.0)
[2017-04-09 07:27] LABS: ANION GAP 8 (8-16); BLOOD UREA NITROGEN 32 mg/dL (7-18); CALCIUM 8.6 mg/dL (8.5-10.1); CHLORIDE 107 mmol/L (98-107); CO2 26 mmol/L (21-32); CREATININE 1.1 mg/dL (0.55-1.02); GLUCOSE,RANDOM 100 mg/dL (74-106); POTASSIUM 3.9 mmol/L (3.5-5.1); SODIUM 141 mmol/L (136-145)
[2017-04-09] MEDS: SODIUM CHLORIDE 1,000 ML IV SCH (10:00)
[2017-04-09] MEDS: ATORVASTATIN CA 10 MG TABLET (FP) PO SCH (10:14)
[2017-04-09] MEDS: SOTALOL HCL 80 MG TABLET (FP) PO SCH (10:14)
[2017-04-09] MEDS: CALCIUM 500MG/VIT-D 200 UNITS COMBO TABLET (FP) PO SCH (10:14)
[2017-04-09] MEDS: APIXABAN 2.5 MG TABLET PO SCH ×2 (10:15→21:31)
--- NOTE | 2017-04-09 10:48 | PN ---
Progress Note (short form) - Note Progress Note: s: no cp sob palps dizzy o: Vital Signs Period Temp Pulse Resp BP Sys/Grant Pulse Ox Last 24 Hr 97.5 F-9703 F 64-84 14-20 112-135/62-82 96 nad, no jvd irreg,rr, s1s2 no mrg ctabl nl eff aaox3 no le e/c/c abd nt nd pos bs pos dp pt, no carotid bruits no jaundice diaphoresis Current Medications Generic Name Dose Route Start Last Admin Trade Name Freq PRN Reason Stop Dose Admin Acetaminophen 650 mg 04/07/17 00:25 04/08/17 08:04 Tylenol - PO 650 mg Q6H PRN Administration PAIN Apixaban 2.5 mg 04/07/17 22:00 04/09/17 10:15 Eliquis - PO 2.5 mg BID LETICIA Administration Atorvastatin Calcium 10 mg 04/07/17 10:00 04/09/17 10:14 Lipitor - PO 10 mg DAILY LETICIA Administration Calcium Carbonate/Cholecalciferol 1 tab 04/07/17 10:00 04/09/17 10:14 Os-Obinna 500+D - PO 1 tab DAILY LETICIA Administration Diltiazem HCl 180 mg 04/07/17 10:00 04/09/17 10:14 Cardizem Cd - PO 180 mg DAILY LETICIA Administration Sodium Chloride 1,000 mls @ 75 mls/hr 04/08/17 11:45 04/08/17 12:41 Normal Saline - IV 75 mls/hr ASDIR LETICIA Administration Sotalol HCl 40 mg 04/07/17 10:00 04/09/17 10:14 Betapace - PO 40 mg DAILY LETICIA Administration Tramadol HCl 50 mg 04/07/17 00:22 Ultram - PO Q8H PRN SEVERE PAIN CBC, BMP 04/09/17 06:35 04/09/17 06:35 cxr: clear lungs ecg: afib, hr 120, nl qtc, no ischemic changes echo 08/2013: nl lv/rv, mild mr echo 11/2015: nl lv, rv tds, mod manuel, mod-sev mr, mod tr, rvsp 30-40 tele: rate controlled afib a/p: 87 f hx htn, hld, dm, afib here s/p fall. fall: -seems to be mechanical fall, no indication of cardiac etiology -has c-spine fx, plans per neurosurgery htn: -controlled hld: -cont statin afib/flutter with rvr: -rvr difficult to control in past on several meds, currently rate ok with sotalol and dilt, continue -cont AC as doing cardiac brooks stable for dc
--- NOTE | 2017-04-09 10:54 | PN ---
Progress Note, Physician Chief Complaint: No new event , Less neck pain able to ambulate on wheel chair remained rate controlled - Current Medication List Current Medications: Active Medications Acetaminophen (Tylenol -) 650 mg PO Q6H PRN PRN Reason: PAIN Last Admin: 04/08/17 08:04 Dose: 650 mg Apixaban (Eliquis -) 2.5 mg PO BID [facility] Last Admin: 04/09/17 10:15 Dose: 2.5 mg Atorvastatin Calcium (Lipitor -) 10 mg PO DAILY [facility] Last Admin: 04/09/17 10:14 Dose: 10 mg Calcium Carbonate/Cholecalciferol (Os-Obinna 500+D -) 1 tab PO DAILY [facility] Last Admin: 04/09/17 10:14 Dose: 1 tab Diltiazem HCl (Cardizem Cd -) 180 mg PO DAILY [facility] Last Admin: 04/09/17 10:14 Dose: 180 mg Sodium Chloride (Normal Saline -) 1,000 mls @ 75 mls/hr IV ASDIR [facility] Last Admin: 04/08/17 12:41 Dose: 75 mls/hr Sotalol HCl (Betapace -) 40 mg PO DAILY [facility] Last Admin: 04/09/17 10:14 Dose: 40 mg Tramadol HCl (Ultram -) 50 mg PO Q8H PRN PRN Reason: SEVERE PAIN - Objective Vital Signs: Vital Signs Temperature 98.2 F 04/09/17 08:00 Pulse Rate 68 04/09/17 08:00 Respiratory Rate 14 04/09/17 08:00 Blood Pressure 120/66 04/09/17 08:00 O2 Sat by Pulse Oximetry (%) 96 04/08/17 20:00 Elderly F comfortable c/o Neck Pian HEENT: Mm moist, no anemia, PERRLA EOMI NECK Stablized in Hard collar CHEST: CTA B/L CVS:S1S2 R no m/g/r ABD: No distention, non tender Bs + EXT: No edema feet, no calf tender, Pulses + CHICKEN BONER: AOX3 non focal Labs: CBC, BMP 04/09/17 06:35 04/09/17 06:35 INR, PTT INR 1.05 (0.82-1.09) 04/06/17 21:15 Problem List - Problems (1) Fall Assessment/Plan: Mechanical fall will evalute with PT Code(s): W19.XXXA - UNSPECIFIED FALL, INITIAL ENCOUNTER (2) Cervical spine fracture Assessment/Plan: C21 fractiure no neurological deficit pain control, hard color , neuro spine consult Code(s): S12.9XXA - FRACTURE OF NECK, UNSPECIFIED, INITIAL ENCOUNTER Qualifiers: Encounter type: initial encounter Cervical vertebra fracture level: C1 (3) ADELITA (acute kidney injury) Assessment/Plan: Improving cont IV Hydration F/U BMP (4) HTN (hypertension) Assessment/Plan: Well controlled cont home meds Code(s): I10 - ESSENTIAL (PRIMARY) HYPERTENSION (5) Atrial fibrillation with RVR Assessment/Plan: Present with Afib with RVR now rate controlled Code(s): I48.91 - UNSPECIFIED ATRIAL FIBRILLATION
[2017-04-10 06:20] LABS: EOS % 3.8 % (0-4.5); HEMATOCRIT 35.8 % (32.4-45.2); LYMPH % 22.4 % (8-40); MCH 31.3 pg (25.7-33.7); MCHC 33.4 g/dl (32.0-36.0); MEAN CELL VOLUME 93.9 fl (80-96); MEAN PLT VOLUME 9.1 fl (7.5-11.1); MONO % 14.1 % (3.8-10.2); NEUT % 58.7 % (42.8-82.8); PLATELET COUNT 174 K/MM3 (134-434); RBC 3.82 M/mm3 (3.60-5.2); RDW 14.2 % (11.6-15.6); WHITE BLOOD COUNT 6.2 K/mm3 (4.0-10.0)
[2017-04-10 06:55] LABS: ANION GAP 8 (8-16); BLOOD UREA NITROGEN 29 mg/dL (7-18); CALCIUM 8.3 mg/dL (8.5-10.1); CHLORIDE 111 mmol/L (98-107); CO2 23 mmol/L (21-32); CREATININE 0.9 mg/dL (0.55-1.02); GLUCOSE,RANDOM 104 mg/dL (74-106); POTASSIUM 3.7 mmol/L (3.5-5.1); SODIUM 142 mmol/L (136-145)
[2017-04-10 10:30] VITALS: BP 124/68; PULSE 64; TEMP 98.2
[2017-04-10] MEDS: CALCIUM 500MG/VIT-D 200 UNITS COMBO TABLET (FP) PO SCH (10:30)
[2017-04-10] MEDS: APIXABAN 2.5 MG TABLET PO SCH (10:30)
[2017-04-10] MEDS: SOTALOL HCL 80 MG TABLET (FP) PO SCH (10:30)
[2017-04-10] MEDS ORDERED: POTASSIUM CHLORIDE TABS 20 MEQ TABLET.ER (FP) PO ONE (10:31)
[2017-04-10] MEDS: ATORVASTATIN CA 10 MG TABLET (FP) PO SCH (10:31)
--- NOTE | 2017-04-10 10:53 | PN ---
Progress Note (short form) - Note Progress Note: CC: s/p fall s: no cp sob palps dizzy o: Current Medications Acetaminophen (Tylenol -) 650 mg PO Q6H PRN PRN Reason: PAIN Last Admin: 04/08/17 08:04 Dose: 650 mg Apixaban (Eliquis -) 2.5 mg PO BID [facility] Last Admin: 04/09/17 21:31 Dose: 2.5 mg Atorvastatin Calcium (Lipitor -) 10 mg PO DAILY [facility] Last Admin: 04/09/17 10:14 Dose: 10 mg Calcium Carbonate/Cholecalciferol (Os-Obinna 500+D -) 1 tab PO DAILY [facility] Last Admin: 04/09/17 10:14 Dose: 1 tab Diltiazem HCl (Cardizem Cd -) 180 mg PO DAILY [facility] Last Admin: 04/09/17 10:14 Dose: 180 mg Sodium Chloride (Normal Saline -) 1,000 mls @ 75 mls/hr IV ASDIR [facility] Last Admin: 04/09/17 10:00 Dose: 75 mls/hr Sotalol HCl (Betapace -) 40 mg PO DAILY [facility] Last Admin: 04/09/17 10:14 Dose: 40 mg Tramadol HCl (Ultram -) 50 mg PO Q8H PRN PRN Reason: SEVERE PAIN Vital Signs - 24 hr 04/09/17 04/09/17 04/09/17 14:00 18:00 20:00 Temperature 98.3 F 97.9 F 98.2 F Pulse Rate 68 69 62 Respiratory 18 18 18 Rate Blood Pressure 102/55 112/61 107/64 O2 Sat by Pulse Oximetry (%) 04/09/17 04/10/17 04/10/17 21:00 02:00 05:47 Temperature 97.8 F 97.5 F L Pulse Rate 77 66 Respiratory 18 18 Rate Blood Pressure 135/73 123/64 O2 Sat by Pulse 95 Oximetry (%) 04/10/17 09:00 Temperature 98.2 F Pulse Rate 64 Respiratory 14 Rate Blood Pressure 124/68 O2 Sat by Pulse Oximetry (%) Intake & Output 04/08/17 04/09/17 04/10/17 04/11/17 07:59 07:59 07:59 07:59 Intake Total 450 1270 1725 Output Total 200 Balance 250 1270 1725 nad, no jvd irreg,rr, s1s2 no mrg ctabl nl eff aaox3 no le e/c/c abd nt nd pos bs pos dp pt, no carotid bruits no jaundice diaphoresis CBC, BMP 04/10/17 06:05 04/10/17 06:05 cxr: clear lungs ecg: afib, hr 120, nl qtc, no ischemic changes echo 08/2013: nl lv/rv, mild mr echo 11/2015: nl lv, rv tds, mod manuel, mod-sev mr, mod tr, rvsp 30-40 tele: rate controlled afib a/p: 87 f hx htn, hld, dm, afib here s/p fall. fall: -seems to be mechanical fall, no indication of cardiac etiology -has c-spine fx, neurosurgery aware. per report, ok for AC htn: -controlled/improving s/p IVF. - will check orthostatic vitals this am. can likely d/c IVF. hld: -cont statin afib/flutter with rvr: -rvr difficult to control in past on several meds, currently rate ok with sotalol and dilt, continue -cont AC as doing. Will defer to pmd regarding need for fall risk assessment. - lyte repletion cardiac brooks stable for dc with outpatient cardiology follow up
--- NOTE | 2017-04-10 11:15 | DS ---
Physical Examination Vital Signs: Vital Signs Temperature 36.8 C 04/10/17 09:00 Pulse Rate 64 04/10/17 09:00 Respiratory Rate 14 04/10/17 09:00 Blood Pressure 124/68 04/10/17 09:00 O2 Sat by Pulse Oximetry (%) 95 04/09/17 21:00 Constitutional: Yes: Well Nourished, No Distress, Calm Cardiovascular: Yes: Pulse Irregular. No: Tachycardia, Gallop, Murmur, Rub Respiratory: Yes: Regular, CTA Bilaterally. No: Rales, Rhonchi, Wheezes Gastrointestinal: Yes: Normal Bowel Sounds, Soft. No: Distention, Tenderness Extremities: Yes: WNL Edema: No Labs: CBC, BMP 04/10/17 06:05 04/10/17 06:05 Discharge Summary Reason For Visit: FRACTURE OF CERVICAL VERTEBRA Current Active Problems Atrial fibrillation (Acute) Atrial fibrillation with RVR (Acute) Cervical spine fracture (Acute) Fall (Acute) Head trauma (Acute) Hospital Course: (1) Fall Code(s): W19.XXXA - UNSPECIFIED FALL, INITIAL ENCOUNTER (2) Cervical spine fracture Code(s): S12.9XXA - FRACTURE OF NECK, UNSPECIFIED, INITIAL ENCOUNTER Qualifiers: Encounter type: initial encounter Cervical vertebra fracture level: C1 (3) ADELITA (acute kidney injury) (4) HTN (hypertension) Code(s): I10 - ESSENTIAL (PRIMARY) HYPERTENSION (5) Atrial fibrillation with RVR Code(s): I48.91 - UNSPECIFIED ATRIAL FIBRILLATION Mrs Leone is a pleasant 87 year old female who comes in with fall and found to have a fracture of her C-1 spine. She was admitted to the hospital. Neurosurgery was consulted and recommended 12 weeks of wearing the hard collar, no surgical intervention needed. She was encouraged to wear the hard collar at all times as RN states she has a tendency to take it off. She was also found to have ADELITA and was hydrated. On admission she had afib with RVR, she is rate controlled and on anticoagulation. She is currently stable for discharge home with home VNS for physical therapy. 31 minutes spent in preparation of this discharge Condition: Stable - Instructions Diet, Activity, Other Instructions: resume previous diet. Wear hard c-collar for 12 weeks. Walk with rolling walker. Referrals: Chad Carballo MD [Staff Physician] - 1 Month Ja Cartagena MD [Primary Care Provider] - 1 Week Disposition: VNS/HOME HEALTH CARE - Home Medications Comprehensive Discharge Medication List: Ambulatory Orders Atorvastatin Ca [Lipitor] 10 mg PO DAILY 08/20/12 Diltiazem Cd [Cardizem Cd -] 180 mg PO DAILY #30 cap.cd.24h 12/17/15 Sotalol HCl [Betapace -] 40 mg PO DAILY tablet 12/17/15 Ca/D3/Mag Ox/Zinc/Business Test Analyst/Kris/Bor [Calcium 600-D3 Plus Caplet] 1 each PO DAILY Metformin HCl 500 mg PO DAILY 06/05/16 Tramadol HCl 50 mg PO Q8H PRN #12 tablet MDD 3 tabs 06/05/16 Apixaban [Eliquis -] 2.5 mg PO BID #60 tablet 04/10/17
[2017-04-10] MEDS ORDERED: PT OWN MED DRAWER 7, Y5N ONE (11:23)
[2017-04-10] MEDS: SODIUM CHLORIDE 1,000 ML IV SCH (12:21)
[2017-04-10 13:37] LABS: MAGNESIUM 1.8 mg/dL (1.8-2.4)
== END 2017-04-10 15:02 | disposition home health service (06) | DRG 552 ==
LOC: JER 19:11 → JERBED 04-07 00:05 → J4W 04-07 12:28
PROVIDERS: ADMIT Internal Medicine; ATTEND Internal Medicine
DX: S12.000A Unspecified displaced fracture of first cervical vertebra, initial encounter for closed fracture (principal); N17.9 Acute kidney failure, unspecified; I48.92 Unspecified atrial flutter; W19.XXXA Unspecified fall, initial encounter; Y93.9 Activity, unspecified; Y92.89 Other specified places as the place of occurrence of the external cause; Y99.9 Unspecified external cause status; I10 Essential (primary) hypertension; I48.91 Unspecified atrial fibrillation; E78.5 Hyperlipidemia, unspecified; E11.9 Type 2 diabetes mellitus without complications
CPT/HCPCS: 36415; 70450-TC; 71046-TC-FY; 72125-TC; 80048; 80053; 81003; 81015; 83735; 83880; 84443; 84484; 85025; 85610; 85730; 86850; 86900; 86901; 87086; 93005; 93010; 97116-GP; 97161-GP; 99285-25